=== PATIENT | female | born 1945 | race Two or more races ===

== ENCOUNTER 2019-08-27 08:19 | Outpatient (CLI) | payer OTHER ==
[~2019-08-27 08:19] MED LIST: CARDESARTAN PO; SEGLUROMET 7.51 EAC1 PO
== END 2019-08-27 08:32 | disposition home or self-care (01) ==
LOC: LAB 08:19
DX: E11.9 Type 2 diabetes mellitus without complications (principal)

== ENCOUNTER 2019-09-01 07:10 | Day surgery (SDC) | payer OTHER ==
[~2019-09-01] VITALS: Ht 167.6 cm; Wt 68.5 kg
[2019-09-02] MEDS ORDERED: ATACAND16 MG (08:28)
== END 2019-09-02 08:00 | disposition home or self-care (01) ==
LOC: CIR.AMB 07:10 → O/R 15:11 → CIR.AMB 15:11 → OB/GYN 15:11 → O/R 15:45 → OB/GYN 15:45 → CIR.AMB 09-02 08:00 → OB/GYN 09-02 12:28 → O/R 09-02 12:28
DX: D25.1 Intramural leiomyoma of uterus (principal); N72 Inflammatory disease of cervix uteri; N81.11 Cystocele, midline; E11.9 Type 2 diabetes mellitus without complications; Z79.4 Long term (current) use of insulin